=== PATIENT | male | born 1990 | race Caucasian/White ===

== ENCOUNTER 2017-01-11 21:30 | Emergency (ER) | payer MEDICAID ==
[~2017-01-11] VITALS: Ht 175.3 cm; Wt 79.5 kg
[2017-01-11] MEDS ORDERED: BACITRACIN 0.9 GM PACKET OINTMENT TP ONE ×2 (22:22→22:30)
[2017-01-11 22:45] VITALS: BP 133/71
== END 2017-01-11 22:47 | disposition home or self-care (01) ==
LOC: EMS 21:38
DX: S60.512A Abrasion of left hand, initial encounter (principal); S80.212A Abrasion, left knee, initial encounter; S80.211A Abrasion, right knee, initial encounter; Y00.XXXA Assault by blunt object, initial encounter; F17.200 Nicotine dependence, unspecified, uncomplicated; Y93.89 Activity, other specified; Y92.89 Other specified places as the place of occurrence of the external cause; Y99.8 Other external cause status
CPT/HCPCS: 99283; 99406